=== PATIENT | female | born 1980 | race American Indian/Alaskan Native ===

== ENCOUNTER 2020-02-17 13:17 | Outpatient (CLI) | payer OTHER ==
--- NOTE | 2020-02-17 17:18 | Ultrasound Report ---
BILATERAL DIGITAL DIAGNOSTIC MAMMOGRAM WITH CAD CONVENTIONAL, 02/17/2020 LEFT LIMITED BREAST ULTRASOUND CLINICAL INFORMATION / INDICATION: Patient presents for evaluation of an area of palpable concern in the left breast. TECHNIQUE: Digital bilateral mammographic imaging was performed. Spot compression views were obtained . Limited ultrasound was performed. This examination was interpreted with the benefit of Computer-Aid ed Detection (CAD) analysis. COMPARISON: Baseline FINDINGS: Breast Density: The breasts are heterogeneously dense, which may obscure small masses. MAMMOGRAPHIC FINDINGS: No dominant mass, suspicious calcifications, or architectural distortion in ei ther breast. There is no mammographic abnormality underlying the marker denoting site of palpable con cern in the lower inner quadrant of the left breast, therefore targeted ultrasound subsequently perfo rmed. ULTRASOUND FINDINGS: Targeted ultrasound evaluation was performed of the area of interest. There is no sonographic abnormality in the 8:00 left breast corresponding with the site of palpable concern. Incidental note is made of a small focus of benign fibrocystic change in the 9:00 position located 5 cm from the nipple measuring up to 4 mm. No suspicious cystic or solid lesion identified. IMPRESSION: No mammographic or sonographic abnormality to account for the area of palpable concern in the left breast, therefore clinical correlation is recommended. Follow up recommendation: Unless otherwise clinically indicated, recommend patient return to routine screening mammography at age 40. BI-RADS Category 2: Benign. A "normal" or negative report should not discourage follow up or biopsy of a clinically significant f inding. A written summary of these findings will be mailed to the patient. The patient will be entered into a mammography reporting system which will generate a reminder letter for the patient's next appointmen t at the appropriate interval. According to the [employer], yearly mammograms are recommended starting at age 40 and continuing as long as a woman is in good health. Breast MRI is recommended for women with an scott roximately 20-25% or greater lifetime risk of breast cancer, including women with a strong family his tory of breast or ovarian cancer and women who have been treated for Hodgkin's disease. Signer Name: Hilda Dobbins MD Signed: 02/17/2020 5:12 PM Workstation Name: [id number]
== END 2020-02-17 13:18 | disposition home or self-care (01) ==
LOC: MAMMO 13:17
PROVIDERS: ATTEND Obstetrics & Gynecology
DX: N63.22 Unspecified lump in the left breast, upper inner quadrant (principal); N60.02 Solitary cyst of left breast
CPT/HCPCS: 77066